=== PATIENT | male | born 1950 | race Hispanic/Latino ===

== ENCOUNTER → 2020-10-02 | Outpatient (CLI) | payer OTHER | END | disposition home or self-care (01) | LOC: OIH 14:10 | PROVIDERS: ATTEND Internal Medicine Cardiovascular Disease | DX: Z13.6 Encounter for screening for cardiovascular disorders (principal) | CPT/HCPCS: 75571 ==

== ENCOUNTER → 2022-05-27 | Outpatient (CLI) | payer OTHER | END | disposition home or self-care (01) | LOC: RAH 13:22 | PROVIDERS: ATTEND Family Medicine | DX: M43.16 Spondylolisthesis, lumbar region (principal); M48.062 Spinal stenosis, lumbar region with neurogenic claudication | CPT/HCPCS: 72114 ==

== ENCOUNTER → 2022-06-17 | Outpatient (CLI) | payer OTHER | END | disposition home or self-care (01) | LOC: RAH 13:27 | PROVIDERS: ATTEND Physical Medicine & Rehabilitation | DX: M51.36 Other intervertebral disc degeneration, lumbar region (principal); M48.062 Spinal stenosis, lumbar region with neurogenic claudication; M48.061 Spinal stenosis, lumbar region without neurogenic claudication | CPT/HCPCS: 72148 ==

== ENCOUNTER 2022-11-25 09:00 | Observation (INO) | payer OTHER ==
[~2022-11-25] VITALS: Ht 190.5 cm; Wt 117.8 kg
[2022-11-25 11:18] LABS: BASOPHILS % (AUTO) 0.5 % (0.0-5.0); EOSINOPHILS % (AUTO) 2.4 % (0.0-8.0); HEMATOCRIT 45.6 % (42-54); LYMPHOCYTES % (AUTO) 25.8 % (21.0-51.0); MEAN CORPUSCULAR HEMOGLOBIN 28.7 pg (27.0-33.0); MEAN CORPUSCULAR HGB CONC 32.2 g/dL (32.0-36.0); MEAN CORPUSCULAR VOLUME 89.1 fL (79-99); MONOCYTES % (AUTO) 6.8 % (3.0-13.0); NEUTROPHILS % (AUTO) 64.2 % (40.0-77.0); PLATELET COUNT (AUTO) 261 K/uL (130-400); RED BLOOD CELL COUNT(AUTO) 5.12 MIL/uL (4.50-6.20); RED CELL DISTRIBUTION WIDTH 13.8 % (11.0-15.5); WHITE BLOOD COUNT (AUTO) 10.9 K/uL (4.8-10.8)
[2022-11-25 11:28] LABS: POTASSIUM 3.7 mmol/L (3.5-5.1)
[2022-11-25 11:31] VITALS: BP 154/73
[2022-11-25 12:21] LABS: INR 0.93 (0.85-1.15); PROTHROMBIN TIME 10.1 SEC (9.6-11.6)
[2022-11-25 12:22] LABS: PARTIAL THROMBOPLASTIN TIME 29.9 SEC (26.3-35.5)
[2022-11-25] MEDS ORDERED: IBUP-2070 PO (13:24)
[2022-11-25] MEDS ORDERED: GABA600T10 PO (13:25)
[2022-11-25] MEDS ORDERED: INSU3INS3 SQ ×2 (13:25)
[2022-11-25] MEDS ORDERED: INSU100I15 SQ (13:25)
[2022-11-25] MEDS ORDERED: PRED5DRO25 OS (13:25)
[2022-11-25] MEDS ORDERED: ATOR10 PO (13:25)
[2022-11-25] MEDS ORDERED: DUTA0.5C37 PO (13:25)
[2022-11-25] MEDS ORDERED: EMPA1TAB7 PO (13:25)
[2022-11-25] MEDS ORDERED: PROP15DR OP (13:25)
[2022-11-25] MEDS ORDERED: VALS1TAB77 PO (13:25)
[2022-11-25] MEDS ORDERED: BYDUREON BCISE SQ (13:25)
[2022-11-25] MEDS ORDERED: KETO.5OS OS (13:25)
[2022-11-25] MEDS ORDERED: AEC81 PO (13:25)
[2022-11-26] VITALS (35 sets, daily range): BP systolic 116–173; BP diastolic 59–118
[2022-11-26] MEDS ORDERED: THROMBIN-JMI 20000 UNIT KIT TP ONE ×2 (05:11→08:11)
[2022-11-26] MEDS ORDERED: GENTAMICIN SULFATE 80 MG/2 ML VIAL ONE (05:11)
[2022-11-26] MEDS ORDERED: MORPHINE PF 100MG/10ML AMP IV ONE ×2 (05:12→08:13)
[2022-11-26] MEDS ORDERED: DEXMEDETOMIDINE HCL 200 MCG/2 ML VIAL IV ONE ×2 (05:24→08:46)
[2022-11-26] MEDS ORDERED: 0.9%NACL 1000ML 1,000 ML IV ONE (05:59)
[2022-11-26] MEDS: CLINDAMYCIN IVPB 900MG/50ML 50 ML IV SCH ×5 (06:00→18:30)
[2022-11-26] MEDS ORDERED: ROCURONIUM 10MG/1ML SYR 10 MG/ML ML ONE (07:12)
[2022-11-26] MEDS ORDERED: PROPOFOL 10 MG/ML 20ML VIAL IV ONE (07:12)
[2022-11-26] MEDS ORDERED: MIDAZOLAM HCL 1 MG/ML 2ML VIAL ONE (07:12)
[2022-11-26] MEDS ORDERED: FENTANYL CITRATE PF 50 MCG/1 ML 5ML AMP IV ONE (07:13)
[2022-11-26] MEDS ORDERED: BUPIVACAINE/EPI/PF 0.5% 30 ML VIAL IV SCH (07:30)
[2022-11-26] MEDS ORDERED: BUPIVACAINE/EPI/PF 0.25% 30ML VIAL IJ ONE (08:14)
[2022-11-26] MEDS ORDERED: EPHEDRINE SULFATE 50 MG/ML AMPULE ONE (08:28)
[2022-11-26] MEDS ORDERED: ONDANSETRON 4MG INJ ONE ×2 (08:46→12:46)
[2022-11-26] MEDS ORDERED: NEOSTIGMINE 5MG/5ML SYR IV ONE (10:05)
[2022-11-26] MEDS ORDERED: GLYCOPYRROLATE 1 MG/5 ML SYRINGE ONE (10:05)
[2022-11-26] MEDS ORDERED: PROMETHAZINE HCL 25 MG/ML 1ML AMPULE IM PRN (10:30)
[2022-11-26] MEDS ORDERED: 0.9%NACL 10ML VIAL IVP PRN (10:30)
[2022-11-26] MEDS ORDERED: HYDROCODONE/ACETAMINOPHEN 5/325 MG TAB PO PRN (10:30)
[2022-11-26] MEDS ORDERED: MORPHINE 2 MG SYG IVP PRN (10:30)
[2022-11-26] MEDS ORDERED: IBUPROFEN 600 MG TABLET PO PRN (10:30)
[2022-11-26] MEDS: INSULIN LISPRO 100 UNIT/ML 3ML SQ SCH ×2 (11:30→17:00)
[2022-11-26] MEDS ORDERED: KETOROLAC 30MG VIAL (30MG/ML) ONE (12:45)
[2022-11-26] MEDS ORDERED: MEPERIDINE-PF 25 MG/ML SYG ONE ×2 (12:46→13:14)
[2022-11-26] MEDS: DEXAMETHASONE SOD PHOSPHATE 4 MG/ML 1ML VIAL IVP SCH ×3 (13:29→22:42)
[2022-11-26] MEDS: PEG OP SCH ×2 (14:00→21:00)
[2022-11-26] MEDS: PROPYLENE GLYCOL OP SCH ×2 (14:00→21:00)
[2022-11-26] MEDS: GABAPENTIN 300 MG CAPSULE PO SCH ×2 (14:00→20:36)
[2022-11-26] MEDS: KETOROLAC OPTH 0.5% 5ML DROPS OS SCH ×2 (14:00→17:54)
[2022-11-26] MEDS: PREDNISOLONE 1% DROPS OS SCH ×2 (14:00→17:54)
[2022-11-26] MEDS: LACTATED RINGERS 1000ML 1,000 ML IV SCH ×2 (20:41→23:50)
[2022-11-26] MEDS ORDERED: NON-FORMULARY MEDICATION 1 EACH (Dutasteride 0.5 MG) PO SCH (21:00)
[2022-11-26] MEDS ORDERED: ASPIRIN 81 MG EC TAB PO SCH (21:00)
[2022-11-26] MEDS ORDERED: FINASTERIDE 5 MG TABLET PO SCH (21:00)
[2022-11-26] MEDS: EMPAGLIFLOZIN PO SCH (21:00)
[2022-11-26] MEDS ORDERED: ATORVASTATIN 10 MG TABLET PO SCH (21:00)
[2022-11-26] MEDS: METFORMIN HCL PO SCH (21:00)
[2022-11-26] MEDS ORDERED: INSULIN GLARGINE 100 UNITS/ML 10 ML VIAL SQ SCH (21:00)
[2022-11-27] VITALS: BP 168/71
[2022-11-27 04:00] VITALS: BP 149/67
[2022-11-27] MEDS: DEXAMETHASONE SOD PHOSPHATE 4 MG/ML 1ML VIAL IVP SCH ×2 (04:36→10:40)
[2022-11-27] MEDS: INSULIN LISPRO 100 UNIT/ML 3ML SQ SCH (08:14)
[2022-11-27] MEDS: GABAPENTIN 300 MG CAPSULE PO SCH (08:16)
[2022-11-27] MEDS: PREDNISOLONE 1% DROPS OS SCH (08:19)
[2022-11-27] MEDS: KETOROLAC OPTH 0.5% 5ML DROPS OS SCH (08:20)
[2022-11-27] MEDS: METFORMIN HCL PO SCH (08:20)
[2022-11-27] MEDS: EMPAGLIFLOZIN PO SCH (08:20)
[2022-11-27] MEDS: PEG OP SCH (08:20)
[2022-11-27] MEDS: PROPYLENE GLYCOL OP SCH (08:20)
[2022-11-27] MEDS ORDERED: LOSARTAN 100 MG TABLET PO SCH (09:00)
[2022-11-27] MEDS ORDERED: INSULIN GLARGINE 100 UNITS/ML 10 ML VIAL SQ SCH (09:00)
[2022-11-27] MEDS ORDERED: NON-FORMULARY MEDICATION 1 EACH (Valsartan/Hydrochlorothiazide (Valsartan-Hctz 160-25 mg T PO SCH (09:00)
[2022-11-27] MEDS ORDERED: HYDROCHLOROTHIAZIDE 25 MG TABLET PO SCH (09:00)
[2022-12-03] MEDS ORDERED: BYDUREON BCISE 2 MG SQ SCH (09:00)
== END 2022-11-27 11:20 | disposition home or self-care (01) ==
LOC: DAHIP 11-26 05:47 → EDSTATUS 11-26 09:00 → 4CH 11-26 18:57
PROVIDERS: ADMIT Neurological Surgery; ATTEND Neurological Surgery
DX: M48.062 Spinal stenosis, lumbar region with neurogenic claudication (principal); Z20.822 Contact with and (suspected) exposure to COVID-19; E11.42 Type 2 diabetes mellitus with diabetic polyneuropathy; E11.51 Type 2 diabetes mellitus with diabetic peripheral angiopathy without gangrene; Z88.0 Allergy status to penicillin; Z79.899 Other long term (current) drug therapy; Z98.890 Other specified postprocedural states
CPT/HCPCS: 80048; 85025; 85610; 85730; 87426; 36415; 71045; 63047; 63048; 96374; 82948 ×6; 72020; 96376; A6260; J1100 ×5; G0378 ×17; G0379; A4663; J7120 ×2; A4344; A4649 ×4; J3010; J3490 ×9; J2710; J7030; J1580; J7510; J2250; J2704; J2274 ×2; J2405 ×2; J1885; J2175 ×2; A4215; A4223; A4222; A4221; A4600